=== PATIENT | male | born 1980 | race Caucasian/White ===

== ENCOUNTER 2024-01-30 02:12 | Emergency (ER) | payer SELFPAY ==
[~2024-01-30] VITALS: Ht 185.4 cm; Wt 70.2 kg
[2024-01-30] MEDS ORDERED: LORazepam 2MG/ML-1ML VIAL IV ONE (02:45)
[2024-01-30 03:20] LABS: Basophils # (auto) 0.1 10 ^3/uL (0-0.2); Basophils % (auto) 0.9 % (0.0-2.0); Eosinophils # (auto) 0.1 10 ^3/uL (0-0.8); Eosinophils % (auto) 0.7 % (0.0-7.0); Hematocrit 46.2 % (41.0-53.0); Hemoglobin 15.9 g/dL (13.5-17.5); Lymphocytes # (auto) 2.5 10 ^3/uL (0.4-5.4); Lymphocytes % (auto) 20.3 % (10.0-50.0); Mean Corpuscular Hgb Conc. 34.4 g/dL (32.0-36.0); Mean Corpuscular Volume 95.9 fL (80.0-100.0); Monocytes # (auto) 0.9 10 ^3/uL (0-1.3); Neutrophils # (auto) 8.6 10 ^3/uL (1.6-8.6); Neutrophils % (auto) 71.1 % (37.0-80.0); Red Blood Cells 4.82 10^6/uL (4.5-5.90); Red Cell Distribution Width 13.2 % (11.8-14.3); White Blood Cell 12.2 10^3/uL (4.4-10.8)
[2024-01-30 03:31] LABS: Chloride 105 mmol/L (98-107); Potassium 3.4 mmol/L (3.5-5.1); Sodium 141 mmol/L (136-145)
[2024-01-30 03:32] LABS: Anion Gap 13 (5-15); Calcium 10.1 mg/dL (8.5-10.1); Carbon Dioxide 23 mmol/L (20-30)
[2024-01-30 03:36] LABS: Acetaminophen < 2.0 UG/ML (10.0-20.0); Salicylate 8.9 mg/dL (2.8-20.0)
[2024-01-30 03:37] LABS: BUN/Creatinine Ratio 17.9 (10.0-20.0); Blood Alcohol 110.3 mg/dL (<10); Blood Urea Nitrogen 15 mg/dL (9-23); Glucose 108 mg/dL (74-106)
[2024-01-30] MEDS: LORazepam 0.5 MG TAB PO ONE (03:37)
[2024-01-30 03:56] LABS: Amphetamine Screen, Urine Pos (NEGATIVE); Barbiturate Scree,Urine Neg (NEGATIVE); Benzodiazephine Screen, Urine Neg (NEGATIVE); Cannabinoid Screen, Urine Pos (NEGATIVE); Cocaine Screen, Urine Neg (NEGATIVE); Opiate Scree,Urine Neg (NEGATIVE); Phencyclidine Screen, Urine Neg (NEGATIVE)
[2024-01-30 17:59] VITALS: RESP 18; O2SAT 98
[2024-01-30 19:30] VITALS: PULSE 85; RESP 16; O2SAT 99
[2024-01-30] MEDS: QUEtiapine FUMARATE 25 MG TAB PO SCH (22:23)
[2024-01-31 10:07] VITALS: BP 124/70; PULSE 87; RESP 15; TEMP 98.4; O2SAT 99
[2024-01-31] MEDS: POTASSIUM CHL 20 Meq TABLET PO ONE (10:47)
== END 2024-01-31 12:07 | disposition home or self-care (01) ==
LOC: ER 02:12
DX: R45.851 Suicidal ideations (principal); F31.9 Bipolar disorder, unspecified; F10.10 Alcohol abuse, uncomplicated; Z79.899 Other long term (current) drug therapy; Y90.0 Blood alcohol level of less than 20 mg/100 ml
CPT/HCPCS: 36415; 80048; 80307; 80320; 80329; 85025